=== PATIENT | male | born 1990 | race Caucasian/White ===

== ENCOUNTER 2017-10-11 19:03 | Emergency (ER) | payer OTHER ==
[~2017-10-11] VITALS: Ht 170.2 cm; Wt 74.8 kg
[2017-10-11 21:56] LABS: ABSOLUTE BASOPHIL COUNT 0 /CUMM (0.0-0.2); ABSOLUTE EOSINOPHIL COUNT 0.1 /CUMM (0.0-0.7); ABSOLUTE GRANULOCYTE CT 2.2 /CUMM (1.4-6.5); ABSOLUTE LYMPH COUNT 1.3 /CUMM (1.2-3.4); ABSOLUTE MONOCYTE COUNT 0.4 /CUMM (0.10-0.60); BASOPHIL % 0.3 % (0.0-2.0); EOSINOPHIL % 2.2 % (0-5); GRANULOCYTE % 54.9 % (42.2-75.2); HEMATOCRIT 44.2 % (42-52); MEAN CORPUSCULAR HGB 29.8 PG (27.0-31.0); MEAN CORPUSCULAR HGB CONC 32.7 G/DL (33.0-37.0); MEAN CORPUSCULAR VOLUME 91.2 FL (80.0-94.0); MEAN PLATELET VOLUME 8.7 FL (7.4-10.4); PLATELET COUNT 147 /CUMM (130-400); RBC DISTRIBUTION WIDTH 12.6 % (11.5-14.5); RED BLOOD CELL CT 4.85 /CUMM (4.70-6.10); WHITE BLOOD CELL COUNT 4.1 /CUMM (4.8-10.8)
[2017-10-11] MEDS ORDERED: IBUPROFEN600 M1 PO (22:24)
[2017-10-11] MEDS ORDERED: LEVSIN-SL0.125 MG SL (22:24)
[2017-10-11] MEDS ORDERED: ZOFRAN ODT4 M1 SL (22:24)
--- NOTE | 2017-10-11 22:26 | ED GI/GU/ABDOMINAL COMPLAINT ---
History of Present Illness General Chief Complaint: Abdominal Pain/Flank Pain Stated Complaint: R SIDED ABD PAIN Source: patient, old records Exam Limitations: no limitations Vital Signs & Intake/Output Vital Signs & Intake/Output Vital Signs Date Time Temp Pulse Resp B/P B/P Pulse O2 O2 Flow FiO2 Mean Ox Delivery Rate 10/11 1917 97.9 72 15 131/80 97 Room Air Room Air Allergies Coded Allergies: No Known Allergies (10/11/17) Reconcile Medications Hyoscyamine Sulfate (Levsin-Sl) 0.125 MG TAB.SUBL 1-2 TAB SL Q4P PRN abdominal pain Ibuprofen 600 MG TABLET 1 TAB PO Q6PRN PRN pain, fever/chills with food Ondansetron (Zofran Odt) 4 MG TAB.RAPDIS 1 TAB SL TID PRN nausea Triage Note: PT TO ED FOR C/C OF R QUADRANT ABD PAIN WITH SOME NAUSEA. PT ALSO REPORTS PALE COLORED STOOL. POOR PO INTAKE. DENIES FEVERS/CHILLS. HX OF APPENDECTOMY. Triage Nurses Notes Reviewed? yes Onset: Morning Duration: hour(s):, constant, continues in ED Timing: recent history Quality/Severity: aching, mild, moderate Location: right lower quadrant, right upper quadrant Radiation: no radiation Activities at Onset: none Prior Abdominal Problems: similar symptoms Past Sexual History: Unobtainable at this time Sexually Active: No No Modifying Factors: none Associated Symptoms: abdominal pain, fatigue, loss of appetite, nausea/vomiting HPI: 2 days prior to admission patient complains of nasal congestion chills body aches. The morning prior to admission patient will woke with right-sided abdominal pain described as achy constant nonradiating associated with nausea and decreased appetite. 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 He denies fever vomiting diarrhea chest pain cough shortness of breath headache dysuria rash bleeding. Past History Travel History Traveled to [place] past 21 day No Medical History Any Pertinent Medical History? 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 No Review of Systems Review of Systems Constitutional: Reports: see HPI, chills, malaise. EENTM: Reports: no symptoms. Respiratory: Reports: no symptoms. Cardiovascular: Reports: no symptoms. GI: Reports: see HPI, abdominal pain, nausea, changes in stool. Genitourinary: Reports: no symptoms. Musculoskeletal: Reports: no symptoms. Skin: Reports: no symptoms. Neurological/Psychological: Reports: no symptoms. Hematologic/Endocrine: Reports: no symptoms. Immunologic/Allergic: Reports: no symptoms. All Other Systems: Reviewed and Negative Physical Exam Physical Exam General Appearance: well developed/nourished, alert, awake, anxious, mild distress Head: atraumatic, normal appearance Eyes: Bilateral: normal appearance, PERRL, EOMI, normal inspection. Ears, Nose, Throat, Mouth: hearing grossly normal, moist mucous membrane Neck: normal inspection, supple, full range of motion, normal alignment Respiratory: normal breath sounds, chest non-tender, no respiratory distress, quiet respiration, lungs clear Cardiovascular: regular rate/rhythm, normal peripheral pulses, norml femoral pulses equa Peripheral Pulses: 4+ carotid (R), 4+ carotid (L) Gastrointestinal: soft, non-tender, no organomegaly, abnormal bowel sounds Male Genitals: normal genitalia Back: normal inspection, normal range of motion Extremities: normal range of motion, no ligament instability Neurologic/Psych: no motor/sensory deficits, awake, alert, oriented x 3, normal gait, normal mood/affect, 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 No Sepsis Present: No Sepsis Focused Exam Completed? No Progress Differential Diagnosis: biliary colic, cholecystitis, gastritis, pancreatitis Plan of Care: Orders Procedure Date/time Status RAPID VIRAL INFLUENZA A 10/11 2131 Complete LIPASE 10/11 2131 Complete COMPREHENSIVE METABOLIC PANEL 10/11 2131 Complete CBC WITHOUT DIFFERENTIAL 10/11 2131 Complete Current Medications Sig/Iveth Start time Last Medication Dose Stop Time Status Admin Sodium Chloride 1,000 ML BOLUS ONE 10/11 2144 AC 10/11 (Normal Saline 0.9%) 10/11 Laboratory Tests 10/11/172144: Anion Gap 12, Estimated GFR > 60, BUN/Creatinine Ratio 22.9, Glucose 89, Calcium 9.0, Total Bilirubin 0.4, AST 24, ALT 34, Alkaline Phosphatase 51, Total Protein 7.2, Albumin 4.6, Globulin 2.6, Albumin/Globulin Ratio 1.8, Lipase 93, CBC w Diff NO MAN DIFF REQ, RBC 4.85, MCV 91.2, MCH 29.8, MCHC 32.7 L, RDW 12.6, MPV 8.7, Gran % 54.9, Lymphocytes % 31.7, Monocytes % 10.9 H, Eosinophils % 2.2, Basophils % 0.3, Absolute Granulocytes 2.2, Absolute Lymphocytes 1.3, Absolute Monocytes 0.4, Absolute Eosinophils 0.1, Absolute Basophils 0 Microbiology 10/11 2139 NASOPHARYN: Influenza Virus A & B Rapid Smear - COMP Initial ED EKG: none Departure Departure Time of Disposition: 2221 Disposition: HOME OR SELF CARE Condition: Stable Clinical Impression Primary Impression: Acute viral syndrome Referrals: Marquita BIRCH,Radha العلي (PCP/Family) Departure Forms: Customer Survey General Discharge Information RELEASE- WORK days. May Return to Work today: No Number of days excused from work: 2 (Including today's visit) Prescriptions: Current Visit Scripts Ondansetron (Zofran Odt) 1 TAB SL TID PRN nausea #10 TAB Hyoscyamine Sulfate (Levsin-Sl) 1-2 TAB SL Q4P PRN abdominal pain #30 TAB Ibuprofen 1 TAB PO Q6PRN PRN pain, fever/chills #50 TAB with food
[2017-10-11 22:37] VITALS: BP 104/60
== END 2017-10-11 22:38 ==
LOC: ERH 19:03
PROVIDERS: Emergency Medicine
DX: B34.9 Viral infection, unspecified (principal)
CPT/HCPCS: 87804; 87804-59; 96365; J0131